=== PATIENT | male | born 1965 | race Caucasian/White ===

== ENCOUNTER 2019-06-24 12:46 | Emergency (ER) | payer SELFPAY ==
[~2019-06-24] VITALS: Ht 172.7 cm; Wt 73.0 kg
[2019-06-24] MEDS ORDERED: KETOROLAC 60MG/2ML VIAL IM ONE (14:45)
[2019-06-24] MEDS ORDERED: HYDROCODONE/ACETAMINOPHEN 5/325MG TABLET PO ONE (15:30)
[2019-06-24 16:45] VITALS: BP 145/96
== END 2019-06-24 16:47 | disposition home or self-care (01) ==
LOC: ER 12:57
DX: S52.502A Unspecified fracture of the lower end of left radius, initial encounter for closed fracture (principal); W11.XXXA Fall on and from ladder, initial encounter; Y93.89 Activity, other specified; Y92.9 Unspecified place or not applicable
CPT/HCPCS: 29105; 73030; 73090; 73110; 73130; 96372; 99283; J1885

== ENCOUNTER 2021-06-08 09:57 | Emergency (ER) | payer MEDICAID ==
[~2021-06-08] VITALS: Ht 165.1 cm; Wt 75.0 kg
[2021-06-08 10:01] VITALS: BP 166/117
[2021-06-08 10:40] LABS: BASOPHILS % 0.7 % (0.0-2.0); EOSINOPHILS % 0.2 % (0.0-5.0); HEMATOCRIT. 42.3 % (42.0-52.0); HEMOGLOBIN. 14.5 g/dL (14.0-18.0); LYMPHOCYTES % 14.2 % (20.0-50.0); MEAN CORPUSCULAR HEMOGLOBIN 30.6 pg (28.0-32.0); MEAN CORPUSCULAR VOLUME 89.4 fL (80.0-94.0); MEAN PLATELET VOLUME 7.2 fl (7.4-10.4); MONOCYTES % 9.5 % (2.0-8.0); NEUTROPHILS % 75.4 % (40.0-76.0); PLATELET 247 x1000/uL (130-400); RED BLOOD CELL COUNT 4.73 mill/uL (4.7-6.1)
[2021-06-08 10:43] LABS: CHLORIDE 105 mEq/L (98-107)
[2021-06-08 10:47] LABS: INR 0.9; PROTHROMBIN TIME 9.9 sec (9.6-11.0)
[2021-06-08 10:48] LABS: ETHANOL BLOOD 63 mg/dL
[2021-06-08 11:52] LABS: CLARITY URINE CLEAR (CLEAR); COLOR URINE YELLOW (YELLOW); KETONES URINE TRACE (NEGATIVE); LEUKOCYTE ESTERASE URINE NEGATIVE (NEGATIVE); NITRITE URINE NEGATIVE (NEGATIVE); OCCULT BLOOD URINE 1+ (NEGATIVE); PROTEIN URINE 2+ (NEGATIVE); SPECIFIC GRAVITY URINE 1.023 (1.005-1.030); UROBILINOGEN URINE 0.2 E.U./dL (0.2-1.0)
== END 2021-06-08 11:41 | disposition left against medical advice (07) ==
LOC: ER 09:57
DX: D69.2 Other nonthrombocytopenic purpura (principal); K70.10 Alcoholic hepatitis without ascites; F12.10 Cannabis abuse, uncomplicated; Y90.3 Blood alcohol level of 60-79 mg/100 ml
CPT/HCPCS: 36415; 80053; 80320; 81003; 85025; 99283; G0480

== ENCOUNTER 2024-03-20 19:17 | Emergency (ER) | payer MEDICAID ==
[~2024-03-20] VITALS: Ht 167.6 cm; Wt 58.0 kg
[2024-03-20 19:19] VITALS: O2SAT 96
[2024-03-20 20:23] VITALS: TEMP 36.61404
[2024-03-20] MEDS: SODIUM CHLORIDE 0.9% 1,000 ML IV ONE (20:33)
[2024-03-20] MEDS: ONDANSETRON HCL 4MG/2ML INJ IV STA (20:33)
[2024-03-20] MEDS: CHLORDIAZEPOXIDE 25MG CAPSULE PO ONE (20:34)
[2024-03-20] MEDS: LORAZEPAM 2MG/ML INJ IV ONE (20:34)
[2024-03-20 21:15] LABS: HEMATOCRIT. 34.7 % (42.0-52.0); HEMOGLOBIN. 11.9 g/dL (14.0-18.0); MEAN CORPUSCULAR HGB CONC 34.3 g/dL (31.0-37.0); MEAN CORPUSCULAR VOLUME 90.6 fL (80.0-94.0); MEAN PLATELET VOLUME 7.5 fl (7.4-10.4); PLATELET 159 x1000/uL (130-400); RED BLOOD CELL COUNT 3.83 mill/uL (4.7-6.1); RED CELL DISTRIBUTION WIDTH 14.4 % (11.6-14.6); WHITE BLOOD COUNT 3.2 x1000/uL (4.5-11.0)
[2024-03-20 21:17] LABS: DIFFERENTIAL COMMENT 1
[2024-03-20 21:19] LABS: CHLORIDE 100 mEq/L (98-107); POTASSIUM 2.9 mEq/L (3.5-5.1); SODIUM 137 mEq/L (136-145)
[2024-03-20 21:20] LABS: CALCIUM 9.4 mg/dL (8.7-10.4); CARBON DIOXIDE 22 mEq/L (21-32)
[2024-03-20 21:25] LABS: CREATININE 1.2 mg/dL (0.6-1.3); ETHANOL BLOOD 37 mg/dL (<10); GLUCOSE 115 mg/dL (70-105); UREA NITROGEN BLOOD 17 mg/dL (9-23)
[2024-03-20 21:26] LABS: PROTHROMBIN TIME 10.9 sec (9.6-11.0)
[2024-03-20] MEDS ORDERED: POTASSIUM CHLORIDE 20MEQ TABLET SR PO NR (21:45)
[2024-03-20 22:17] LABS: PLATELET ESTIMATE NORMAL
[2024-03-21 00:03] VITALS: BP 128/86; PULSE 74; RESP 17; O2SAT 99
[2024-03-21] MEDS: LORAZEPAM 2MG/ML INJ IV NR (07:10)
[2024-03-21] MEDS: POTASSIUM CHLORIDE 20MEQ TABLET SR PO NR (08:00)
== END 2024-03-21 08:38 | disposition left against medical advice (07) ==
LOC: ER 19:17
DX: F10.239 Alcohol dependence with withdrawal, unspecified (principal); F12.90 Cannabis use, unspecified, uncomplicated; E78.00 Pure hypercholesterolemia, unspecified; Y90.9 Presence of alcohol in blood, level not specified
CPT/HCPCS: 80048; 80320; 83690; 85025; 85610; 36415; 96361; 96374; 96375; 99284; 96376; J2060 ×2; J2405; J7030; G0480

== ENCOUNTER 2024-10-30 10:26 | Emergency (ER) | payer MEDICAID ==
[~2024-10-30] VITALS: Ht 152.4 cm; Wt 59.0 kg
[2024-10-30 10:29] VITALS: PULSE 101; RESP 16; O2SAT 100
[2024-10-30 10:39] VITALS: BP 127/81; TEMP 36.8; O2SAT 100
[2024-10-30] MEDS: ACETAMINOPHEN 325MG TABLET PO ONE (12:00)
[2024-10-30] MEDS: TETANUS, DIPHTHERIA, PERTUSSIS VAC/PF 0.5ML (>10YR OLD) IM ONE (12:00)
== END 2024-10-30 13:26 | disposition home or self-care (01) ==
LOC: ER 10:26
DX: S52.514A Nondisplaced fracture of right radial styloid process, initial encounter for closed fracture (principal); S62.234A Other nondisplaced fracture of base of first metacarpal bone, right hand, initial encounter for closed fracture; S00.511A Abrasion of lip, initial encounter; F12.90 Cannabis use, unspecified, uncomplicated; R51.9 Headache, unspecified; E78.00 Pure hypercholesterolemia, unspecified; W19.XXXA Unspecified fall, initial encounter; Y93.89 Activity, other specified; Y92.89 Other specified places as the place of occurrence of the external cause; Y99.8 Other external cause status
CPT/HCPCS: 73030; 73110; 73120; 70450; 70486; 90715; 29125; 90471; 99285; Z7610; A6449